=== PATIENT | female | born 1960 | race Two or more races ===

== ENCOUNTER 2017-11-10 09:12 | Outpatient (CLI) | payer OTHER ==
[~2017-11-10 09:12] MED LIST: ADVIL LIQUI-GE200 MG PO; ALLEGRA ALLERG180 MG PO; AMOX1TAB12 PO; CATAFLAM50 MG PO; CLARITIN10 M1 PO; CORTISPORIN EAR10 M1 OT; COZAAR50 MG; COZAAR50 MG PO; DOLOGEN CAPLET1 EACH PO; FLONASE16 GM NS; GABAPENTIN600 MG; GILTUSS TR TAB1 EACH PO; LASIX20 MG; NAPR500T14 PO; PREVACID30 M1 PO; PROPRANOLOL HCL80 MG; [UNRECOGNIZED DRUG - OTHER] PO
== END 2017-11-10 09:25 | disposition home or self-care (01) ==
LOC: SONOGRAMA 09:12 → MAMO-SONO 10:15
DX: M06.4 Inflammatory polyarthropathy (principal)

== ENCOUNTER 2019-05-02 07:17 | Outpatient (CLI) | payer OTHER | END 2019-05-02 09:24 | disposition home or self-care (01) | LOC: NUCLEAR 07:17 | DX: M32.19 Other organ or system involvement in systemic lupus erythematosus (principal); M46.1 Sacroiliitis, not elsewhere classified | CPT/HCPCS: 78315; A9503 ==